=== PATIENT | male | born 1990 | race Caucasian/White ===

== ENCOUNTER 2024-04-15 14:54 | Emergency (ER) | payer OTHER, SELFPAY ==
[2024-04-15 14:55] VITALS: BP 154/83; PULSE 87; RESP 18; TEMP 36; O2SAT 99; BMI 50.4
[2024-04-15 15:44] VITALS: BP 148/79; PULSE 85; RESP 20; TEMP 36.1; O2SAT 96
== END 2024-04-15 15:44 | disposition home or self-care (01) ==
LOC: ED 15:30
PROVIDERS: Emergency Provider Emergency Medicine; PCP Physician Assistant; Visit Provider Emergency Medicine
DX: L03.116 Cellulitis of left lower limb (principal); I10 Essential (primary) hypertension
CPT/HCPCS: 99282

== ENCOUNTER → 2024-04-16 | Outpatient (CLI) | payer OTHER, SELFPAY | END | disposition home or self-care (01) | LOC: CVS 08:59 | PROVIDERS: PCP Physician Assistant; Referring Provider Emergency Medicine; Visit Provider Emergency Medicine | DX: M79.662 Pain in left lower leg (principal) | CPT/HCPCS: 93971 ==